=== PATIENT | male | born 1965 | race Caucasian/White ===

== ENCOUNTER 2017-09-17 09:19 | Inpatient (IN) | payer BC ==
--- NOTE | 2017-09-02 21:47 | HP ---
DATE OF ADMISSION: 09/17/2017 Patient to be admitted to the [facility] on September 17, 2017, for surgery. ADMITTING HISTORY: This is a 52-year-old man admitted to the [facility] for surgical management of a rather longstanding chronically incarcerated ventral hernia, which has been progressing in size and has become more symptomatic. Patient had been initially scheduled for surgery back in 2016, but for a multitude of reasons had not presented for the surgery. More recently, he has become more symptomatic and has noticed that the bulge is larger in size. He has now decided to move in the direction of definitive surgical management. The patient has had a small hernia involving the central ring of the abdomen for much of his life. 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 More recently he has been doing heavy work on a regular basis. All this has contributed to ongoing progression of his hernia. No underlying GI, , or respiratory complaints to suggest predisposition to hernia formation. Patient's past medical history is essentially nil. He has been told that he has pre diabetes, as he has had some elevated fasting blood sugars. No known history of hypertension; heart disease; respiratory, renal or hepatic insufficiency. PAST SURGICAL HISTORY: Nil. ALLERGIES: None known. REGULAR MEDICATIONS: None. SOCIAL HISTORY: Negative tobacco, negative alcohol. FAMILY HISTORY: Father , history of diabetes; mother , history of liver cancer. REVIEW OF SYSTEMS: Otherwise nil. PHYSICAL EXAMINATION: Patient examined in erect and supine position. There is an enlargement of the previously identified hernia involving not only the central ring of the abdomen but extending up into the upper midline. The hernia appears to clinically be slightly involving more of the right side than the left. It is still partially but not entirely reducible. The abdomen itself otherwise is unremarkable. IMPRESSION: Progressing, chronically incarcerated ventral hernia. PLAN: Open reduction and repair of chronically incarcerated hernia with mesh and possible bilateral component separation. Indications, alternatives, possible complications reviewed. Issues revolving around placement of the synthetic mesh reviewed at length. Consent obtained. Patient was seen preoperatively by his PMD. Please refer to those notes for those medical details. YUE BYRD M.D. [id number]
[~2017-09-17 09:19] MED LIST: BUPIVACAINE HCL/PF (5 MG/ML) 30 ML VIAL IJ ONE; DEXAMETHASONE SOD PHOSPHATE 4 MG/1 ML VIAL IVPUSH ONE
[2017-09-17] MEDS ORDERED: TAMSULOSIN HCL 0.4 MG CAP.ER.24H (FP) ONE (10:33)
[2017-09-17] MEDS ORDERED: ceFAZolin SODIUM 1 GM VIAL ONE (10:33)
[2017-09-17] MEDS ORDERED: ONDANSETRON 4 MG/2 ML VIAL ONE (11:12)
[2017-09-17] MEDS ORDERED: LIDOCAINE HCL 2% 100 MG/5 ML DISP.SYRIN ONE (11:12)
[2017-09-17] MEDS ORDERED: DEXAMETHASONE SOD PHOSPHATE 4 MG/1 ML VIAL ONE (11:12)
[2017-09-17] MEDS ORDERED: fentaNYL CITRATE 250 MCG/5 ML VIAL ONE (11:12)
[2017-09-17] MEDS ORDERED: ROCURONIUM BROMIDE 50 MG/5 ML VIAL ONE (11:13)
[2017-09-17] MEDS ORDERED: PROPOFOL 20 ML ONE (11:13)
[2017-09-17] MEDS ORDERED: MIDAZOLAM HCL 2 MG/2 ML SINGLE DOSE VIAL ONE (11:13)
[2017-09-17 11:21] VITALS: BMI 29.8
[2017-09-17] MEDS ORDERED: ceFAZolin SODIUM 1 GM VIAL IVPB ONE (12:47)
[2017-09-17] MEDS ORDERED: morphine CARPU-JECT 10 MG/1 ML DISP.SYRIN IVPB PRN (13:03)
[2017-09-17] MEDS ORDERED: oxyCODONE HCL 5 MG TABLET PO PRN (13:03)
[2017-09-17] MEDS ORDERED: ONDANSETRON 4 MG/2 ML VIAL IVPUSH PRN ×2 (13:03→15:04)
[2017-09-17] MEDS ORDERED: IBUPROFEN 800 MG/8 ML IJ IVPB PRN (13:06)
[2017-09-17] MEDS ORDERED: D5-1/2NS+20 MEQ KCL - 20 MEQ/1,000 ML INFUS.BAG IV SCH (13:15)
[2017-09-17] MEDS ORDERED: DEXAMETHASONE SOD PHOSPHATE 4 MG/1 ML VIAL IVPUSH ONE (13:37)
[2017-09-17] MEDS ORDERED: BUPIVACAINE HCL/PF (5 MG/ML) 30 ML VIAL IJ ONE (13:37)
[2017-09-17] MEDS ORDERED: GLYCOPYRROLATE 0.2 MG/1 ML VIAL ONE (13:39)
[2017-09-17] MEDS ORDERED: NEOSTIGMINE METHYLSULFATE 0.5 MG/ML - 10 ML MDV ONE (13:40)
[2017-09-17] MEDS ORDERED: HYDROmorphone HCL CARPU-JECT 1 MG/1 ML DISP.SYRIN IVPUSH PRN (15:04)
[2017-09-17] MEDS ORDERED: LACTATED RINGERS SOLUTION 1,000 ML IV SCH (15:15)
[2017-09-17] MEDS: ACETAMINOPHEN 325 MG TABLET (FP) PO PRN (22:02)
[2017-09-18] MEDS: ACETAMINOPHEN 325 MG TABLET (FP) PO PRN ×2 (03:58→09:18)
[2017-09-18 06:40] VITALS: BP 130/61; PULSE 50; TEMP 97.7
[2017-09-18] MEDS ORDERED: PANTOPRAZOLE SODIUM 40 MG VIAL IVPUSH SCH (10:00)
--- NOTE | 2017-09-18 12:25 | OP ---
DATE OF OPERATION: 09/17/2017 PREOPERATIVE DIAGNOSIS: Complex incarcerated ventral hernia. POSTOPERATIVE DIAGNOSIS: Complex incarcerated ventral hernia. PROCEDURE: Bilateral component separation repair of incarcerated ventral hernia with mesh/rectus sheath block. OPERATING SURGEON: Aubrey Youssef MD INFORMATION SYSTEMS AUDITOR: Horacio Carmichael MD ANESTHESIA: Jacob Clarke MD (general) HISTORY: This is a 52-year-old man with a rather longstanding progressive incarcerated ventral hernia who presents for definitive repair. Indications, alternatives, and possible complications reviewed. Consent was obtained. DESCRIPTION OF PROCEDURE: With the patient in the supine position, under general anesthesia, the abdomen was prepped and draped in the usual sterile fashion using chlorhexidine. A midline incision was made directly over the hernia and deepened into the subcutaneous space. The hernia sac and contents were easily encountered. The sac was cleaned to the level of the fascial ring. The sac was opened, found to contain incarcerated omentum. The lysis of adhesions ensued, and the omentum was reduced. First directing our attention to the right side, the posterior rectus sheath was from the overlying right rectus muscle fibers, moving in the inferior, lateral, and superior directions. Ultimately, the separation extended to the level of the juncture of the rectus with the transversus and oblique musculature. The separation continued with the external oblique musculature from the transversus, allowing the plane to continue, inferior, laterally, and superiorly. After the separation, procedure was completed on the right side. The left side was approached. Again, the left posterior rectus sheath was from the overlying left rectus muscle fibers. Again, the dissection proceeded in the inferior, lateral, and superior directions on the left, also the transversus from the overlying external oblique from the transversus from the overlying oblique musculature. The midline was then recreated approximating the posterior sheath using the continuous 3-0 chromic suture. A composite mesh was then made at the table using a 15 x 15 cm size ProGrip mesh which was fastened to a similar size of the LORENA Bio mesh. This was accomplished using interrupted 3-0 Vicryl sutures. The mesh was then placed in the retrorectus space with the LORENA Bio side down and the ProGrip side up. The mesh was fashioned to leave in the retrorectus space. It was tacked circumferentially with an AbsorbaTack counterpalpation. After fixation of the mesh in the retrorectus space, the region was irrigated. Adequate hemostasis was ensured. The anterior sheath was then approximated, leaving the composite mesh entirely in the retrorectus space. This was accomplished using 0 PDS suture material. The subcutaneous space was irrigated out. The wound was subsequently closed, approximating the subcutaneous tissues with 3-0 chromic sutures. The subcuticular layer was approximated with 4-0 Biosyn sutures. Skin edges were approximated using metallic clips. NEEDLE, SPONGE, AND INSTRUMENT COUNT: Correct. ESTIMATED BLOOD LOSS: Minimal. SPECIMENS: None. DRAINS: None. IMPLANT: ProGrip mesh/LORENA Bio mesh. Shyla [id number] MTDD
--- NOTE | 2017-09-18 13:20 | DS ---
DATE OF ADMISSION: 09/17/2017 DATE OF DISCHARGE: 09/18/2017 ADMITTING DIAGNOSIS: Complex ventral hernia. BRIEF HISTORY: This is a 52-year-old male who was admitted to [facility] status post complex repair of a ventral hernia utilizing mesh and component separation. The patient's surgery was uneventful. Please reference Dr. Youssef's operative note for further details. He is being discharged home today, September 18, tolerating a liquid diet. He is passing gas, ambulating and voiding. At the time of his discharge, his physical exam is benign with no signs of infection, no sign of recurrence, and no ecchymosis. The patient will go home with a new prescription for Percocet which he will take as needed for pain. He also can take his home ibuprofen as well. He is okay to walk, oaky to climb stairs, okay to shower. He will not lift anything more than 20 pounds. He will avoid driving. He will likely require 2 weeks off from work. He will follow with Dr. Youssef in approximately 2 weeks' time to be evaluated for staple removal. DO JIE HENRIQUEZ/[id number]
== END 2017-09-18 12:28 | disposition home or self-care (01) | DRG 355 ==
LOC: JASU-SURG 09:19 → JSAMEDAYSX 13:03 → J6S 16:51
PROVIDERS: ADMIT Surgery; ATTEND Surgery
PROC: 0WUF0JZ Supplement Abdominal Wall with Synthetic Substitute, Open Approach (ICD-10-PCS; principal; 2017-09-17 11:00)
DX: K43.6 Other and unspecified ventral hernia with obstruction, without gangrene (principal); R73.03 Prediabetes
CPT/HCPCS: 94010; 94760

== ENCOUNTER 2017-10-06 14:09 | Emergency (ER) | payer BC ==
--- NOTE | 2017-10-06 14:21 | PDOC ---
History of Present Illness - General History Source: Patient Exam Limitations: No Limitations - History of Present Illness Initial Comments: 10/06/17 14:52 The patient is a 52 year old male with a significant PMH of diabetes and hyperlipidemia who presents to the emergency department with 5 days of sore throat and throat swelling and 1 day of headache. The patient describes his sore throat and sore to touch but denies pain when swallowing. He reports going to his PCP and being given a 5-day course of Azithromycin to some relief which ends today. He reports waking up today with a headache and taking 2 Advil to some relief. The patient also notes some episodes of diarrhea yesterday and 2 days ago. The patient denies chest pain, shortness of breath, headache and dizziness. Denies fever, chills, nausea, vomit, and constipation. Denies dysuria, frequency, urgency and hematuria. Allergies: NKA FMHx: Diabetes Past surgical history: Ventral hernia repair (09/17/2017). Appendectomy. Social history: No reported PCP: Dr. Sarah Sullivan <Lei Shaikh - Last Filed: 10/06/17 15:06> <Brannon Arita - Last Filed: 10/06/17 15:52> - General Chief Complaint: Cold Symptoms Stated Complaint: neck pain,cold,enlarged glands in neck Time Seen by Provider: 10/06/17 14:20 Past History <Lei Shaikh - Last Filed: 10/06/17 15:06> - Past Medical History Anemia: No Asthma: No Cancer: No Cardiac Disorders: No CVA: No COPD: No CHF: No Dementia: No Diabetes: Yes (borderline) GI Disorders: No Disorders: No HTN: No Hypercholesterolemia: Yes Liver Disease: No Seizures: No Thyroid Disease: No - Surgical History Abdominal Surgery: No Appendectomy: Yes (AT 12 YEARS OLD) Orthopedic Surgery: Yes (RIGHT KNEE ARTHROSCOPY) - Suicide/Smoking/Psychosocial Hx Smoking Status: No Smoking History: Never smoked Number of Cigarettes Smoked Daily: 0 Hx Alcohol Use: Yes (SOCIAL) Drug/Substance Use Hx: No Hx Substance Use Treatment: No <Brannon Arita - Last Filed: 10/06/17 15:52> - Past Medical History Allergies/Adverse Reactions: Allergies Allergy/AdvReac Type Severity Reaction Status Date / Time No Known Allergies Allergy Verified 10/06/17 14:45 Home Medications: Ambulatory Orders Atorvastatin Ca [Lipitor] 10 mg PO HS 10/06/17 Azithromycin 250 mg PO DAILY 10/06/17 Sitagliptin Phos/Metformin HCl [Janumet Xr 50-1,000 mg Tablet] 1 each PO BID 08/11 Review of Systems - Review of Systems Able to Perform ROS?: Yes Comments:: 10/06/17 14:52 A complete review of 10 out of 10 review of systems is taken and is negative apart from what is previously mentioned below and in the HPI. <Lei Shaikh - Last Filed: 10/06/17 15:06> *Physical Exam - Vital Signs Last Vital Signs Temp Pulse Resp BP Pulse Ox 98.7 F 76 18 126/62 98 10/06/17 14:12 10/06/17 14:12 10/06/17 14:12 10/06/17 14:12 10/06/17 14:12 - Physical Exam Comments: 10/06/17 14:53 Vitals: Triage Vital signs reviewed General Appearance: no acute distress, well nourished well developed, Head: Atraumatic, normocephalic Eyes: Pupils equal reactive round, extraocular movement intact Ears: TM's normal bilaterally; Nose: Nares patent bilaterally;no nasal congestion Throat: Posterior oropharynx without erythema, mucous membranes moist, Neck: (+) Lymphadenopathy. Supple;No Nuchal rigidity Chest Wall: Nontender Cardiac: Regular rate and rhythm, no murmurs, no rubs, no gallops, Lungs: Clear to auscultation bilateral, good air movement bilaterally, Abdomen: Soft, nondistended, normal bowel sounds, nontender to palpation Rectal: Exam deferred <Lei Shaikh - Last Filed: 10/06/17 15:06> Medical Decision Making - Medical Decision Making 10/06/17 15:49 52 years old with diabetes and high cholesterol recent pharyngitis on day 5 of Azithromycin presents to the ED with bilateral cervical lymphadenopathy No difficulty swallowing no difficulty breathing no obvious pharyngitis swollen tonsils on examination neck is supple with no meningismus no evidence of Malvin' s angina on examination We'll check rapid strep treat with Toradol and reassess Reevaluation: Patient feels better after Toradol Patient will follow-up with his primary care provider tomorrow if no improvement in symptoms no indication for additional anabiotic's at this time Findings, the need for follow-up and strict return instructions discussed with patient. <Brannon Arita - Last Filed: 10/06/17 15:52> *DC/Admit/Observation/Transfer - Attestations Scribe Attestion: 10/06/17 14:53 Documentation prepared by Lei Shaikh, acting as center medical specialist for Brannon Arita MD. <Lei Shaikh - Last Filed: 10/06/17 15:06> - Discharge Dispostion Admit: No <Brannon Arita - Last Filed: 10/06/17 15:52> Diagnosis at time of Disposition: Lymphadenopathy - Discharge Dispostion Condition at time of disposition: Stable - Patient Instructions Printed Discharge Instructions: DI for Lymphadenopathy Additional Instructions: Drink plenty fluids. Take [id number] Motrin as prescribed. Return to the emergency department immediately for any fever difficulty breathing difficulty swallowing or for any concerns. Otherwise follow-up with her primary care provider 1-2 days if symptoms do not improve.
[2017-10-06] MEDS ORDERED: KETOROLAC TROMETHAMINE 30 MG/1 ML VIAL IM ONE (14:37)
[2017-10-06 14:52] VITALS: BP 126/62; PULSE 76; TEMP 98.7; BMI 30.2
[2017-10-06] MEDS ORDERED: KETOROLAC TROMETHAMINE 30 MG/1 ML VIAL ONE (14:56)
== END 2017-10-06 16:07 | disposition home or self-care (01) ==
LOC: FER 14:09
PROC: 3E0233Z Introduction of Anti-inflammatory into Muscle, Percutaneous Approach (ICD-10-PCS; principal; 2017-10-06)
DX: R59.1 Generalized enlarged lymph nodes (principal); E11.9 Type 2 diabetes mellitus without complications; E78.00 Pure hypercholesterolemia, unspecified
CPT/HCPCS: 87070; 87430; 99281-25

== ENCOUNTER 2023-01-07 06:54 | Emergency (ER) | payer BC ==
[2023-01-07 07:06] VITALS: BP 169/100; PULSE 62; RESP 16; TEMP 97.8; BMI 30.2
[2023-01-07] MEDS ORDERED: METOCLOPRAMIDE HCL INJECTION 10 MG/2 ML VIAL IVPUSH ONE (07:39)
[2023-01-07] MEDS ORDERED: LACTATED RINGERS SOLUTION 1000 ML INFUS.BAG IV ONE (07:39)
[2023-01-07] MEDS ORDERED: ACETAMINOPHEN 1000 MG/100 ML BAG IVPB ONE (07:39)
[2023-01-07 08:21] LABS: POTASSIUM 4.2 mmol/L (3.5-5.1)
[2023-01-07 08:23] LABS: CALCIUM 8.9 mg/dL (8.5-10.1)
[2023-01-07 08:24] LABS: ALBUMIN 3.7 g/dl (3.4-5.0); BLOOD UREA NITROGEN 17.8 mg/dL (7-18)
[2023-01-07] MEDS ORDERED: METOCLOPRAMIDE HCL INJECTION 10 MG/2 ML VIAL ONE (08:25)
[2023-01-07 08:26] LABS: BASO % 0.7 % (0-2.0); EOS % 2.2 % (0-4.5); HEMATOCRIT 41.5 % (35.4-49); HEMOGLOBIN 14.3 GM/dL (11.7-16.9); LYMPH % 22.7 % (8-40); MCH 29.2 pg (25.7-33.7); MCHC 34.4 g/dl (32.0-35.9); MEAN PLT VOLUME 7.3 fl (7.5-11.1); MONO % 10.7 % (3.8-10.2); NEUT % 63.7 % (42.8-82.8); PLATELET COUNT 284 10^3/uL (134-434); RBC 4.89 M/mm3 (4.00-5.60); RDW 14.2 % (11.9-15.9); WHITE BLOOD COUNT 5.1 K/mm3 (4.0-10.0)
[2023-01-07] MEDS ORDERED: ACETAMINOPHEN INJECTION 100 ML IVPB ONE (08:26)
[2023-01-07 08:27] LABS: CREATININE 0.9 mg/dL (0.55-1.3)
[2023-01-07 08:28] LABS: TOT PROT 7.2 g/dl (6.4-8.2)
== END 2023-01-07 11:16 | disposition home or self-care (01) ==
LOC: JER 06:54
PROC: 3E033NZ Introduction of Analgesics, Hypnotics, Sedatives into Peripheral Vein, Percutaneous Approach (ICD-10-PCS; principal; 2023-01-07)
PROC: 3E033GC Introduction of Other Therapeutic Substance into Peripheral Vein, Percutaneous Approach (ICD-10-PCS; 2023-01-07)
DX: R51.9 Headache, unspecified (principal); R20.2 Paresthesia of skin; Z20.822 Contact with and (suspected) exposure to COVID-19
CPT/HCPCS: 0241U-QW; 36415; 70450-TC; 80053; 82962; 83735; 85025; 93005; 93010; 99285-25